=== PATIENT | female | born 1970 | race Caucasian/White ===

== ENCOUNTER 2022-02-12 07:23 | Emergency (ER) | payer OTHER ==
[~2022-02-12] VITALS: Ht 160 cm; Wt 84.1 kg
[2022-02-12 07:28] VITALS: BP 129/79
--- NOTE | 2022-02-12 07:34 | NUR ---
PT AMBULATED TO BE D4 WITH STEADY GAIT
--- NOTE | 2022-02-12 07:40 | NUR ---
WALKED IN C/O LEFT SIDED FLANK PAIN ONSET 1 MO. DENIES FEVER OR DYSURIA OR HEMATURIA. AAOX3, AMBULATORY, VITALS STABLE, BLOOD AND URINE COLLECTED. ON MONITOR. ALLERGIC TO SULFA
--- NOTE | 2022-02-12 07:50 | NUR ---
DR CRAIG AT BEDSIDE FOR FURTHER EVAL
--- NOTE | 2022-02-12 08:00 | NUR ---
PT WENT FOR CT
--- NOTE | 2022-02-12 08:20 | NUR ---
PT BACK FROM CT
[2022-02-12 08:47] LABS: BASOPHILS # (AUTO) 0.1 K/uL (0.00-0.22); EOSINOPHILS # (AUTO) 0.2 K/uL (0-0.4); EOSINOPHILS % (AUTO) 3.3 % (0.0-4.0); HEMATOCRIT 40.7 % (36-48); HEMOGLOBIN 13.7 g/dL (12.0-16.0); LYMPHOCYTES # (AUTO) 2.9 K/uL (2.5-16.5); LYMPHOCYTES % (AUTO) 48.2 % (20.5-51.1); MEAN CORPUSCULAR HEMOGLOBIN 31 pg (27-31); MEAN CORPUSCULAR HGB CONC 34 g/dL (33-37); MEAN CORPUSCULAR VOLUME 90.6 fL (80-94); MONOCYTES # (AUTO) 0.4 K/uL (0.8-1.0); MONOCYTES % (AUTO) 5.9 % (1.7-9.3); NEUTROPHILS # (AUTO) 2.5 K/uL (1.8-7.7); NEUTROPHILS % (AUTO) 41.6 % (42.2-75.2); PLATELET COUNT (AUTO) 244 K/uL (140-450); RED BLOOD CELL COUNT(AUTO) 4.49 MIL/uL (4.20-5.40); RED CELL DISTRIBUTION WIDTH 13.7 % (11.6-13.7); WHITE BLOOD COUNT (AUTO) 6.1 K/uL (4.8-10.8)
[2022-02-12] MEDS: NACL 0.9% 1,000 ML IV ONE (08:55)
[2022-02-12 09:10] LABS: ALBUMIN 4.4 g/dL (3.4-5.0); ANION GAP 10.7 (8-16); CARBON DIOXIDE 27.1 mmol/L (21-32); POTASSIUM 3.8 mmol/L (3.5-5.1); TOTAL BILIRUBIN 0.3 mg/dL (0.0-1.0)
[2022-02-12 09:12] LABS: APPEARANCE,URINE CLEAR (CLEAR); BILIRUBIN,URINE NEGATIVE (NEGATIVE); BLOOD, URINE 2+ (NEGATIVE); COLOR,URINE YELLOW (YELLOW); LEUKOCYTE ESTERASE ,URINE NEGATIVE (NEGATIVE); NITRITE, URINE NEGATIVE (NEGATIVE); UGLUCOSE NEGATIVE (NEGATIVE)
[2022-02-12 09:39] LABS: RBC,URINE 0-5 /HPF (0-5)
[2022-02-12 09:40] LABS: OTHER CASTS, URINE None Seen /LPF (None Seen); WBC,URINE 0-5 /HPF (0-5)
[2022-02-12 09:47] LABS: FREE T4 (FREE THYROXINE) 0.39 ng/dL (0.76-1.46)
[2022-02-12 10:12] VITALS: BP 121/68
--- NOTE | 2022-02-12 10:12 | NUR ---
PT CALM AND RESTING. VSS, NAD, STATES PAIN DECREASED
[2022-02-12 10:15] LABS: THYROID STIMULATING HORMONE 134.98 uIU/mL (0.34-3.74)
[2022-02-12] MEDS ORDERED: ACET-10509 PO (11:47)
[2022-02-12] MEDS ORDERED: MIRABULK PO (11:47)
--- NOTE | 2022-02-12 12:05 | NUR ---
Patient discharged with v/s stable. Written and verbal after care instructions given. Patient alert, oriented and verbalized understanding of instructions. Ambulatory with steady gait. All questions addressed prior to discharge. ID band removed. Patient advised to follow up with PMD. Rx of Acetaminophen and Miralax given. Opportunity to ask questions provided and answered.
--- NOTE | 2022-02-12 14:56 | NUR ---
The patient's care was reviewed and supervised by Albertina Lucia, RN, RN.
== END 2022-02-12 12:05 | disposition home or self-care (01) ==
LOC: MED 07:23
DX: E03.9 Hypothyroidism, unspecified (principal); R10.9 Unspecified abdominal pain; Z90.49 Acquired absence of other specified parts of digestive tract; Z88.2 Allergy status to sulfonamides; Z79.899 Other long term (current) drug therapy
CPT/HCPCS: 36415; 74176; 80053; 81001; 81025; 82550; 82553; 83690; 84439; 84443; 85025; 87086; 96360; 99284; J7030